=== PATIENT | female | born 1995 | race Caucasian/White ===

== ENCOUNTER 2018-04-08 21:11 | Emergency (ER) | payer SELFPAY ==
[~2018-04-08] VITALS: Ht 157.4 cm; Wt 72.6 kg
[~2018-04-08 21:11] MED LIST: CEFTIN500 M1 PO; CYCLOBENZAPRINE10 MG PO; Hydrocodone/Ace1 TA1 PO; IBU-6600 MG PO; IBU800 MG PO; MOTRIN400 MG PO; PYRIDIUM100 MG PO; ZOFRAN ODT4 MG SL
[2018-04-08] MEDS ORDERED: VIBRAMYCIN100 MG PO (22:08)
== END 2018-04-08 22:08 | disposition home or self-care (01) ==
LOC: ED 21:11
PROVIDERS: Physician Assistant
DX: S30.861A Insect bite (nonvenomous) of abdominal wall, initial encounter (principal); L08.9 Local infection of the skin and subcutaneous tissue, unspecified; Z88.6 Allergy status to analgesic agent; W57.XXXA Bitten or stung by nonvenomous insect and other nonvenomous arthropods, initial encounter; Y93.89 Activity, other specified; Y92.89 Other specified places as the place of occurrence of the external cause; Y99.8 Other external cause status

== ENCOUNTER 2018-04-13 13:36 | Emergency (ER) | payer SELFPAY ==
[~2018-04-13] VITALS: Ht 157.4 cm; Wt 72.6 kg
[~2018-04-13 13:36] MED LIST changes: +VIBRAMYCIN100 MG PO
[2018-04-13] MEDS ORDERED: ZOFRAN4 MG PO (14:00)
[2018-04-13 14:05] LABS: BASO % 0.5 % (0.0-1.0); EOS # 0.1 10*3/uL (0.0-0.4); EOS % 0.8 % (1.0-4.0); HEMATOCRIT 42.2 % (37.0-47.0); HEMOGLOBIN 14.3 g/dl (12.0-16.0); LYMPH # 2.3 10*3/uL (1.3-4.4); LYMPH % 30.2 % (27.0-41.0); MEAN CELL VOLUME 93.4 fl (81.0-99.0); MEAN CORPUSCULAR HGB 31.6 pg (27.0-31.0); MEAN CORPUSCULAR HGB CONC 33.9 g/dl (33.0-37.0); MEAN PLATELET VOLUME 12.5 fl (9.6-12.3); MONO # 0.5 10*3/uL (0.1-1.0); NEUT # 4.7 10*3/uL (2.3-7.9); NEUT % 62.4 % (47.0-73.0); PLATELET COUNT AUTOMATED 205 10*3/uL (130-400); RED BLOOD COUNT 4.52 10*6/uL (4.10-5.10); RED CELL DISTRI WIDTH 12.9 % (0-14.5); WHITE BLOOD COUNT 7.6 10*3/uL (4.8-10.8)
[2018-04-13 14:13] LABS: BILIRUBIN NEGATIVE (NEGATIVE); BLOOD NEGATIVE (NEGATIVE); CLARITY SL CLOUDY (CLEAR); COLOR YELLOW (YELLOW); GLUCOSE NEGATIVE (NEGATIVE); KETONE NEGATIVE (NEGATIVE); LEUKO ESTERASE NEGATIVE (NEGATIVE); NITRITE NEGATIVE (NEGATIVE); UROBILINOGEN 0.2 E.U./dl (0.2-1.0)
[2018-04-13 14:20] LABS: ALBUMIN 3.7 gm/dl (3.1-4.5); ALKALINE PHOSPHATASE 66 U/L (45-117); BUN 13 mg/dl (7-24); CHLORIDE 107 mmol/L (98-107); CREATININE 0.78 mg/dL (0.55-1.02); POTASSIUM 3.8 mmol/L (3.5-5.1); SGOT/AST 8 IU/L (3-35); SGPT/ALT 14 U/L (12-78); SODIUM 140 mmol/L (136-145); TOTAL PROTEIN 7.3 gm/dL (6.4-8.2)
[2018-04-13 14:36] LABS: RBC 0-2 rbc/hpf (0-2); WBC 0-2 wbc/hpf (0-5)
[2018-04-13 14:37] LABS: BACTERIA 1+; MUCOUS TRACE
== END 2018-04-13 14:55 | disposition home or self-care (01) ==
LOC: ED 13:36
PROVIDERS: Nurse Practitioner Family
DX: B34.9 Viral infection, unspecified (principal); Z88.6 Allergy status to analgesic agent

== ENCOUNTER 2018-05-29 14:00 | Emergency (ER) | payer SELFPAY ==
[~2018-05-29] VITALS: Ht 160 cm; Wt 73.5 kg
[~2018-05-29 14:00] MED LIST changes: +ZOFRAN4 MG PO
[2018-05-29] MEDS ORDERED: PRENATAL VITAM1 EAC1 PO (14:05)
[2018-05-29] MEDS ORDERED: REGLAN10 M1 PO (14:05)
[2018-05-29 14:20] LABS: BILIRUBIN NEGATIVE (NEGATIVE); BLOOD NEGATIVE (NEGATIVE); CLARITY SL CLOUDY (CLEAR); COLOR YELLOW (YELLOW); GLUCOSE NEGATIVE (NEGATIVE); KETONE NEGATIVE (NEGATIVE); LEUKO ESTERASE NEGATIVE (NEGATIVE); NITRITE NEGATIVE (NEGATIVE); SPECIFIC GRAVITY 1.015 (1.005-1.030); UROBILINOGEN 0.2 E.U./dl (0.2-1.0)
[2018-05-29 14:29] LABS: BACTERIA 1+
== END 2018-05-29 15:22 | disposition home or self-care (01) ==
LOC: ED 14:00
PROVIDERS: Nurse Practitioner Family
DX: O20.9 Hemorrhage in early pregnancy, unspecified (principal); Z3A.08 8 weeks gestation of pregnancy; Z79.899 Other long term (current) drug therapy; Z88.5 Allergy status to narcotic agent

== ENCOUNTER 2018-08-08 18:22 | Emergency (ER) | payer MEDICAID ==
[~2018-08-08] VITALS: Ht 157.4 cm; Wt 72.6 kg
--- NOTE | ~2018-08-08 | EKG ---
[place], [place] ELECTROCARDIOGRAM REPORT NAME: HAIDER FONTANA UNIT #: [id number] ROOM: DOCTOR: EPIPHANY DRAFT REPORT BIRTHDATE: [birth year] [facility] Test Date: 2018-08-08 Test Time: 21:12:10 Pat Name: HAIDER FONTANA Department: ER Room: 4 Gender: F Ticket Puller: EKG.PR : 1995 Requested By: HERMINIA SILVA Order Number: [id number] Reading MD: Dimas Zamarripa MD Measurements Intervals [place] Rate: 68 P: 52 [place]: 123 QRS: 69 QRSD: 79 T: 39 QT: 392 QTc: 417 Interpretive Statements Sinus rhythm No change from earlier ECG this date Electronically Signed On 08-09-2018 16:27:08 PST by Dimas Zamarripa MD CM:EKGRPT:ELECTROCARDIOGRAM REPORT 11 1627 HERMINIA LAGUNA DRAFT REPORT HERMINIA SILVA M.D.
--- NOTE | ~2018-08-08 | EKG ---
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
[~2018-08-08 18:22] MED LIST changes: +PRENATAL VITAM1 EAC1 PO; +REGLAN10 M1 PO
[2018-08-08 18:43] LABS: BASO % 0.3 % (0.0-1.0); EOS % 0.2 % (1.0-4.0); HEMATOCRIT 34.4 % (37.0-47.0); HEMOGLOBIN 12.3 g/dl (12.0-16.0); LYMPH # 1.6 10*3/uL (1.3-4.4); LYMPH % 14.8 % (27.0-41.0); MEAN CORPUSCULAR HGB 33.6 pg (27.0-31.0); MEAN CORPUSCULAR HGB CONC 35.8 g/dl (33.0-37.0); MEAN PLATELET VOLUME 12.6 fl (9.6-12.3); MONO # 0.4 10*3/uL (0.1-1.0); MONO % 3.6 % (3.0-9.0); NEUT # 8.9 10*3/uL (2.3-7.9); NEUT % 80.7 % (47.0-73.0); PLATELET COUNT AUTOMATED 135 10*3/uL (130-400); RED BLOOD COUNT 3.66 10*6/uL (4.10-5.10); RED CELL DISTRI WIDTH 13.3 % (0-14.5)
[2018-08-08 18:51] LABS: ACT PARTIAL THROMBO TIME 22.7 SECONDS (20.8-31.5); INTERNATIONAL NORM RATIO 0.9 (2.0-3.5)
[2018-08-08 18:58] LABS: ALBUMIN 3.2 gm/dl (3.1-4.5); ALKALINE PHOSPHATASE 47 U/L (45-117); BUN 4 mg/dl (7-24); CHLORIDE 106 mmol/L (98-107); POTASSIUM 3.5 mmol/L (3.5-5.1); SGOT/AST 16 IU/L (3-35); SGPT/ALT 19 U/L (12-78); SODIUM 140 mmol/L (136-145); TOTAL PROTEIN 6.7 gm/dL (6.4-8.2)
[2018-08-08 19:01] LABS: TROPONIN I < 0.015 ng/ml (<0.045)
[2018-08-08 19:22] LABS: LIPASE 86 U/L (73-393)
[2018-08-08 20:01] LABS: BILIRUBIN NEGATIVE (NEGATIVE); BLOOD NEGATIVE (NEGATIVE); CLARITY CLEAR (CLEAR); COLOR YELLOW (YELLOW); GLUCOSE NEGATIVE (NEGATIVE); KETONE NEGATIVE (NEGATIVE); LEUKO ESTERASE NEGATIVE (NEGATIVE); NITRITE NEGATIVE (NEGATIVE); SPECIFIC GRAVITY <= 1.005 (1.005-1.030); UROBILINOGEN 0.2 E.U./dl (0.2-1.0)
[2018-08-08 20:21] LABS: BACTERIA TRACE; WBC 0-2 wbc/hpf (0-5)
== END 2018-08-08 21:57 | disposition home or self-care (01) ==
LOC: ED 18:22
PROVIDERS: Emergency Medicine
DX: O26.892 Other specified pregnancy related conditions, second trimester (principal); R07.9 Chest pain, unspecified; R10.30 Lower abdominal pain, unspecified; R11.10 Vomiting, unspecified; Z88.5 Allergy status to narcotic agent; Z79.899 Other long term (current) drug therapy; Z3A.18 18 weeks gestation of pregnancy

== ENCOUNTER 2022-07-19 17:25 | Emergency (ER) | payer OTHER ==
[~2022-07-19] VITALS: Ht 160 cm; Wt 59.0 kg
[2022-07-19] MEDS ORDERED: PERCOCET 5-3251 EACH PO (21:24)
[2022-07-19] MEDS ORDERED: SEPTDS PO (21:24)
[2022-07-19] MEDS ORDERED: ETODOLAC400 M2 PO (21:24)
== END 2022-07-19 21:19 | disposition home or self-care (01) ==
LOC: ED 17:25
DX: N61.1 Abscess of the breast and nipple (principal); Z88.8 Allergy status to other drugs, medicaments and biological substances; Z79.899 Other long term (current) drug therapy

== ENCOUNTER → 2022-08-01 | Outpatient (CLI) | payer OTHER ==
[~2022-08-01] MED LIST changes: +ETODOLAC400 M2 PO; +PERCOCET 5-3251 EACH PO; +SEPTDS PO
== END | disposition home or self-care (01) ==
LOC: US 09:00
PROVIDERS: ATTEND Surgery
DX: N63.11 Unspecified lump in the right breast, upper outer quadrant (principal); N61.1 Abscess of the breast and nipple

== ENCOUNTER 2023-05-03 08:34 | Emergency (ER) | payer OTHER ==
[~2023-05-03] VITALS: Ht 157.4 cm; Wt 54.4 kg
[2023-05-03 10:25] LABS: BASO % 0.5 % (0.0-1.0); EOS # 0.1 10*3/uL (0.0-0.4); EOS % 0.6 % (1.0-4.0); HEMATOCRIT 39.6 % (37.0-47.0); LYMPH # 1.5 10*3/uL (1.3-4.4); LYMPH % 17.8 % (27.0-41.0); MEAN CELL VOLUME 94.5 fl (81.0-99.0); MEAN CORPUSCULAR HGB 33.2 pg (27.0-31.0); MEAN CORPUSCULAR HGB CONC 35.1 g/dl (33.0-37.0); MEAN PLATELET VOLUME 11.9 fl (9.6-12.3); MONO # 0.5 10*3/uL (0.1-1.0); MONO % 6.4 % (3.0-9.0); NEUT # 6.2 10*3/uL (2.3-7.9); NEUT % 74.5 % (47.0-73.0); PLATELET COUNT AUTOMATED 171 10*3/uL (130-400); RED BLOOD COUNT 4.19 10*6/uL (4.10-5.10); RED CELL DISTRI WIDTH 13.2 % (0-14.5); WHITE BLOOD COUNT 8.3 10*3/uL (4.8-10.8)
[2023-05-03 10:48] LABS: ALKALINE PHOSPHATASE 43 U/L (46-116); BUN 9 mg/dl (9-23); CHLORIDE 110 mmol/L (98-107); LIPASE 42 U/L (12-53); SGPT/ALT 12 U/L (10-49); TOTAL PROTEIN 6.6 gm/dL (6.0-8.0); URIC ACID 4.5 mg/dL (3.1-7.8)
[2023-05-03 10:50] LABS: BETA-HCG, QUANT < 3.0 mIU/mL (3-10)
[2023-05-03] MEDS ORDERED: IBUPROFEN600 MG PO (11:48)
== END 2023-05-03 11:56 | disposition home or self-care (01) ==
LOC: ED 08:34
PROVIDERS: Emergency Medicine
DX: M79.671 Pain in right foot (principal)

== ENCOUNTER 2024-08-25 08:27 | Emergency (ER) | payer SELFPAY ==
[~2024-08-25] VITALS: Ht 160 cm; Wt 55.9 kg
[~2024-08-25 08:27] MED LIST changes: +IBUPROFEN600 MG PO
[2024-08-25 09:08] LABS: BILIRUBIN Negative (Negative); BLOOD Negative (Negative); CLARITY Clear (Clear); COLOR Yellow (Yellow); GLUCOSE Negative (Negative); KETONE Negative (Negative); LEUKO ESTERASE Negative (Negative); NITRITE Negative (Negative); SPECIFIC GRAVITY <= 1.005 (1.001-1.030); UROBILINOGEN 0.2 E.U./dl (0.0-1.0)
[2024-08-25 09:34] LABS: RBC 0-2 rbc/hpf (0-2); WBC 0-2 wbc/hpf (0-5)
[2024-08-25] MEDS ORDERED: Ketorolac Tromethamine 30 MG/ML VIAL IM ONE (10:05)
[2024-08-25] MEDS ORDERED: methylPREDNISolone sod succ 125 MG VIAL IM ONE (10:05)
[2024-08-25] MEDS ORDERED: METHOCARBAMOL 500 MG TAB PO ONE (10:05)
[2024-08-25] MEDS ORDERED: METHOCARBAMOL500 M1 PO (10:45)
[2024-08-25] MEDS ORDERED: NAPROSYN500 MG PO (10:45)
[2024-08-25] MEDS ORDERED: PREDNISONE50 MG PO (10:45)
== END 2024-08-25 10:48 | disposition home or self-care (01) ==
LOC: ED 08:27
PROVIDERS: Internal Medicine
DX: S39.012A Strain of muscle, fascia and tendon of lower back, initial encounter (principal); X50.0XXA Overexertion from strenuous movement or load, initial encounter; Y93.89 Activity, other specified; Y92.89 Other specified places as the place of occurrence of the external cause; Y99.8 Other external cause status